=== PATIENT | female | born 1965 | race Caucasian/White ===

== ENCOUNTER → 2021-08-25 | Outpatient (CLI) | payer BC ==
[~2021-08-25] MED LIST: ERYTHROMYCIN OP1 GM EYERT
== END ==
LOC: KOH-I 15:30
DX: S93.402A Sprain of unspecified ligament of left ankle, initial encounter (principal); M79.672 Pain in left foot; W10.8XXA Fall (on) (from) other stairs and steps, initial encounter
CPT/HCPCS: 73610